=== PATIENT | male | born 1930 | race Caucasian/White ===

== ENCOUNTER 2017-05-03 16:54 | Inpatient (IN) | payer MEDICARE ==
[~2017-05-03] VITALS: Ht 182.9 cm; Wt 90.3 kg
--- NOTE | 2017-05-03 17:00 | NUR ---
PT [facility] FROM [facility] TO ER BED 03. PER REPORT, PT IS HYPOXIC SATTING AT LOW 80'S. ARRIVED ON 15L/MIN VIA NON REBREATHER SATTING AT 94%. GOWNED AND PLACED ON MONITOR. PT IS AAOX2, CONFUSED. TACHY NEWSPAPER CORRESPONDENT. AWAITING MD SEAY.
--- NOTE | 2017-05-03 17:05 | NUR ---
DR KEY AT BEDSIDE FOR EVAL.
--- NOTE | 2017-05-03 17:15 | NUR ---
IV LINE STARTED BLOOD DRAWN AND SENT TO LAB.
[2017-05-03] MEDS ORDERED: CALC-494 PO (17:16)
[2017-05-03] MEDS ORDERED: ASCO500T9 PO (17:16)
[2017-05-03] MEDS ORDERED: MULT-447 PO (17:16)
[2017-05-03] MEDS ORDERED: GUAI100S11 PO (17:16)
[2017-05-03] MEDS ORDERED: ACET-868 PO ×2 (17:16)
[2017-05-03] MEDS ORDERED: LOPE2CAP PO (17:16)
[2017-05-03] MEDS ORDERED: MELA3TAB PO (17:16)
[2017-05-03] MEDS ORDERED: AMIN30LI4 PO (17:16)
[2017-05-03] MEDS ORDERED: ZINC220C8 PO (17:16)
[2017-05-03] MEDS ORDERED: ASPI-1152 PO (17:16)
[2017-05-03] MEDS ORDERED: LEVO500T75 PO (17:16)
[2017-05-03] MEDS ORDERED: ALLO100T PO (17:16)
[2017-05-03] MEDS ORDERED: FLUO40CA8 PO (17:16)
[2017-05-03] MEDS ORDERED: AMLO5TAB2 PO (17:16)
[2017-05-03] MEDS ORDERED: NA P133E RC (17:16)
[2017-05-03] MEDS ORDERED: MAGN400O6 PO (17:16)
[2017-05-03] MEDS ORDERED: BISA10SU8 RC (17:16)
--- NOTE | 2017-05-03 17:22 | NUR ---
RADIOLOGY AT BEDSIDE FOR CHEST XRAY.
[2017-05-03] MEDS ORDERED: IV NS 0.9% 1,000 ML BAG IV ONE ×2 (17:30→19:00)
[2017-05-03 17:38] LABS: BASOPHILS # (AUTO) 0.1 /CMM (0.0-0.2); BASOPHILS % (AUTO) 0.5 % (0.0-2.0); EOSINOPHILS # (AUTO) 0.3 /CMM (0.0-0.7); EOSINOPHILS % (AUTO) 1.6 % (0.0-6.0); HEMATOCRIT 42 % (39-51); HEMOGLOBIN 14.4 g/dL (13.5-17.5); LYMPHOCYTES # (AUTO) 0.7 /CMM (0.8-4.8); LYMPHOCYTES % (AUTO) 4.1 % (20.0-44.0); MEAN CORPUSCULAR HEMOGLOBIN 32 PG (26.0-33.0); MEAN CORPUSCULAR HGB CONC 34 g/dl (31.0-36.0); MEAN CORPUSCULAR VOLUME 94 fL (80-96); MONOCYTES # (AUTO) 0.8 /CMM (0.1-1.30); MONOCYTES % (AUTO) 4.5 % (2.0-12.0); NEUTROPHILS # (AUTO) 14.9 /CMM (1.8-8.9); NEUTROPHILS % (AUTO) 89.3 % (43.0-81.0); PLATELET COUNT (AUTO) 228 /CMM (150-450); RDW COEFFICIENT OF VARIATION 14.9 (11.5-15.0); RED BLOOD CELL COUNT(AUTO) 4.44 MIL/uL (4.5-6.0); WHITE BLOOD COUNT (AUTO) 16.8 K/uL (4.3-11.0)
[2017-05-03 17:43] LABS: CALCIUM, SERUM 8.9 mg/dL (8.5-10.1); CARBON DIOXIDE 21 mmol/L (21-32); CHLORIDE 112 mmol/L (98-107); CREATININE 1.6 mg/dL (0.6-1.3); GLUCOSE 102 mg/dL (74-106); POTASSIUM 4.2 mmol/L (3.5-5.1); SODIUM SERUM 143 mmol/L (136-145); UREA NITROGEN, BLOOD 46 mg/dL (7-18)
[2017-05-03 17:49] LABS: ALANINE AMINOTRANSFERASE 52 U/L (12-78); ALBUMIN 1.6 g/dL (3.4-5.0); ALKALINE PHOSPHATASE 162 U/L (46-116); ASPARTATE AMINOTRANSFERASE 50 U/L (15-37); BILIRUBIN,DIRECT 0.2 mg/dL (0.0-0.2); BILIRUBIN,TOTAL 0.6 mg/dL (0.2-1.0); TOTAL PROTEIN, SERUM 7.8 g/dL (6.4-8.2)
[2017-05-03 17:51] LABS: TROPONIN I 0.291 ng/mL (0.00-0.056)
[2017-05-03 17:52] LABS: INR 1.33 (0.85-1.15)
[2017-05-03 18:08] LABS: APPEARANCE,URINE Cloudy (CLEAR); BILIRUBIN,URINE Negative (NEGATIVE); BLOOD, URINE Moderate Ery/uL (NEGATIVE); COLOR,URINE Yellow (YELLOW); KETONES,URINE Negative (NEGATIVE); LEUKOCYTE ESTERASE ,URINE Large (NEGATIVE); NITRITE, URINE Negative (NEGATIVE); PROTEIN,URINE 30 mg/dl (NEGATIVE); UGLUCOSE Negative (NEGATIVE)
[2017-05-03 18:20] LABS: BACTERIA,URINE Moderate /HPF (None Seen); WBC,URINE TOO NUMEROUS TO COUN /HPF (0-3)
[2017-05-03 18:21] LABS: SQUAMOUS EPITHELIAL CELL,UR Moderate /HPF (None Seen); URINE AMORPHOUS URATE Many /HPF (None Seen)
[2017-05-03] MEDS ORDERED: IV NS 0.9% 1,000 ML IV ONE (18:30)
[2017-05-03] MEDS ORDERED: VANCOMYCIN 1 GM in IV D5W 250 ML IV ONE ×2 (18:30→19:00)
--- NOTE | 2017-05-03 18:50 | NUR ---
PT REC'D ON NRB 15LPM, SOB NOTED. PT PLACED ON BIPAP PER DR LUIS SALAZAR. BIPAP PLUGGED INT RED OUTLET. ALARMS ARE SET AND AUDIBLE. SNEHA STEWARD BEDSIDE. WILL CONTINUE TO MONITOR Addendum: 05/03/17 at 2025 by HOWARD ASENCIO RT Amended: Links added.
[2017-05-03 18:59] LABS: NEUTROPHILS % (MANUAL) 84 (42-76)
[2017-05-03 19:00] LABS: BAND % (MANUAL) 5 % (0.0-5.0); LYMPHOCYTES % (MANUAL) 6 % (16-48); MONOCYTES % (MANUAL) 5 % (0-11.0)
[2017-05-03] MEDS ORDERED: ACETAMINOPHEN 650 MG/SUPP.RECT RC PRN (19:00)
[2017-05-03] MEDS ORDERED: ONDANSETRON HCL/PF 4 MG/2 ML VIAL IVP PRN (19:00)
[2017-05-03] MEDS ORDERED: ASCORBIC ACID 500 MG TABLET PO SCH (19:00)
--- NOTE | 2017-05-03 19:06 | NUR ---
REPORT RECEIVED FROM ELIAN FOR CRIST[facility].
[2017-05-03 19:38] LABS: ABG BASE EXCESS -9.9 mmol/L; ABG OXYGEN SATURATION 98.8 % (92.0-98.5); ABG PCO2 27.7 mmHg (35.0-45.0); ABG PH 7.334 (7.350-7.450); ABG PO2 220.7 mmHg (75.0-100.0); AaDO2 464.6 mmHg; COHb 0.2 % (0.5-1.5); MetHb 0.3 % (0.0-1.5); O2Hb 98.3 % (94.0-97.0); SITE, ABG Right Radial; VENT MODE, BG bipap 15/5 100% br14
--- NOTE | 2017-05-03 19:42 | NUR ---
BED 254
[2017-05-03] MEDS ORDERED: ENOXAPARIN SODIUM 60 MG/0.6 ML DISP.SYRIN SQ ONE (20:00)
--- NOTE | 2017-05-03 20:02 | NUR ---
REPORT GIVEN TO NEPTAIL RALPH. PT AWAITING TRANSFER TO FLOOR.
[2017-05-03] MEDS: IV NS 0.9% 1,000 ML IV PRN (20:46)
--- NOTE | 2017-05-03 20:46 | NUR ---
PT TRANSPORTED TO ICU 254 VIA STRETCHER ON ALLEY CLEANER WITH RN AND RT PER ACLS PROTOCOL. VSS.
[2017-05-03] MEDS ORDERED: ASCORBIC ACID 500 MG TABLET ONE (20:56)
[2017-05-03] MEDS ORDERED: ENOXAPARIN SODIUM 100 MG/ML DISP.SYRIN SQ ONE (20:56)
[2017-05-03] MEDS ORDERED: ASPIRIN 81 MG TAB.CHEW ONE ×2 (20:57→20:59)
[2017-05-03] MEDS: ALLOPURINOL 100 MG TABLET PO SCH (21:02)
[2017-05-03] MEDS: ASPIRIN EC 81 MG TABLET.DR PO SCH (21:03)
[2017-05-03 21:24] VITALS: BP 95/59
[2017-05-03] MEDS ORDERED: PHENYLEPHRINE 10 MG/ML VIAL ONE (21:44)
--- NOTE | 2017-05-03 21:45 | NUR ---
ACADEMIC INTERN. NEW ADMISSION. RECEIVED THE PT FROM ER VIA [place], PT AWAKE, ALERT, FOLLOW COMMANDS. PT ADMITTED IN THE ICU ROOM 254. FOE SEPSIS, RESPIRATORY FAILURE.SEPSIS.GRINDING WHEEL FACER SHOWING S TACH. IV RT HAD 20G, IVF NS 100ML/H, HOB ELEVATED, EUSEBIO HANDS BRUISE, SACRAL REDNESS AND DTI,LT THUMP WOUND, BIPAP ON 05/08, RATE 14, FIO2 50%. SAT 98%. WILL CONTINUE TO MONITOR VITALS.
[2017-05-03 22:00] VITALS: BP 80/52
[2017-05-03] MEDS: PHENYLEPHRINE 80 MG in IV D5W 250 ML IV PRN (22:05)
[2017-05-03] MEDS ORDERED: PIPERACILLIN /TAZOBACTAM 2.25 G VIAL IV ONE (22:46)
[2017-05-03 23:00] VITALS: BP 110/71
[2017-05-03 23:30] VITALS: BP 112/60
[2017-05-03 23:52] VITALS: BP 112/60
[2017-05-04] VITALS (46 sets, daily range): BP systolic 83–105; BP diastolic 44–69
[2017-05-04] MEDS ORDERED: PIPERACILLIN /TAZOBACTAM 4.5 G in IV D5W 100 ML IV SCH ×2
--- NOTE | 2017-05-04 03:33 | NUR ---
CHANGE ADVISOR, AM CARE, ORAL CARE, BED BATH GIVEN. LINEN CHANGED. REMAINING SAME BIPAP SETTINGS TOLERATED WELL. SAT 98%, NO ACUTE DISTRESS NOTED. CERTIFIED PATHOLOGY ASSISTANT SHOWING S TACH. IV RT UPPER ARM PICC LINE IVFF NS FC PATENT. TURN AND RE POSITION Q2H,HOB ELEVATED, WILL CONTINUE TO MONITOR VITALS.
[2017-05-04] MEDS ORDERED: VANCOMYCIN 1 GM VIAL ONE (04:27)
[2017-05-04] MEDS ORDERED: VANCOMYCIN 1 GM in IV D5W 250 ML IV ONE (05:00)
[2017-05-04 05:08] LABS: BASOPHILS % (AUTO) 0.1 % (0.0-2.0); EOSINOPHILS % (AUTO) 0.1 % (0.0-6.0); HEMATOCRIT 35 % (39-51); LYMPHOCYTES # (AUTO) 0.5 /CMM (0.8-4.8); LYMPHOCYTES % (AUTO) 3.6 % (20.0-44.0); MEAN CORPUSCULAR HEMOGLOBIN 33 PG (26.0-33.0); MEAN CORPUSCULAR HGB CONC 34 g/dl (31.0-36.0); MEAN CORPUSCULAR VOLUME 96 fL (80-96); MONOCYTES # (AUTO) 0.4 /CMM (0.1-1.30); MONOCYTES % (AUTO) 2.7 % (2.0-12.0); NEUTROPHILS # (AUTO) 13.2 /CMM (1.8-8.9); NEUTROPHILS % (AUTO) 93.5 % (43.0-81.0); PLATELET COUNT (AUTO) 255 /CMM (150-450); RDW COEFFICIENT OF VARIATION 15.4 (11.5-15.0); RED BLOOD CELL COUNT(AUTO) 3.67 MIL/uL (4.5-6.0); WHITE BLOOD COUNT (AUTO) 14.1 K/uL (4.3-11.0)
[2017-05-04 05:17] LABS: ALANINE AMINOTRANSFERASE 42 U/L (12-78); ALKALINE PHOSPHATASE 126 U/L (46-116); ASPARTATE AMINOTRANSFERASE 59 U/L (15-37); BILIRUBIN,TOTAL 0.6 mg/dL (0.2-1.0); CARBON DIOXIDE 20 mmol/L (21-32); CHLORIDE 117 mmol/L (98-107); CREATININE 1.5 mg/dL (0.6-1.3); GLUCOSE 97 mg/dL (74-106); POTASSIUM 3.8 mmol/L (3.5-5.1); SODIUM SERUM 148 mmol/L (136-145); TOTAL PROTEIN, SERUM 6.2 g/dL (6.4-8.2); UREA NITROGEN, BLOOD 47 mg/dL (7-18)
[2017-05-04 05:32] LABS: ALBUMIN 1.3 g/dL (3.4-5.0)
[2017-05-04 05:33] LABS: TROPONIN I 4.426 ng/mL (0.00-0.056)
[2017-05-04] MEDS ORDERED: PIPERACILLIN /TAZOBACTAM 2.25 G in IV D5W 50 ML IV SCH (06:00)
[2017-05-04 06:39] LABS: THYROID STIMULATING HORMONE 1.077 uIU/mL (0.358-3.74)
[2017-05-04] MEDS: PANTOPRAZOLE 40 MG VIAL IV SCH (07:37)
--- NOTE | 2017-05-04 08:00 | NUR ---
AWAKE, ANSWERS APPROPRIATELY. ON BIPAP. NEOSYNEPHRINE GTT TO KEEP SBP>90. TITRATE PRN. AFBERILE. DENIES PAIN.
[2017-05-04 08:54] LABS: MAGNESIUM 1.6 mg/dL (1.8-2.4)
[2017-05-04] MEDS: ALLOPURINOL 100 MG TABLET PO SCH (09:36)
[2017-05-04] MEDS: ASPIRIN EC 81 MG TABLET.DR PO SCH (09:36)
--- NOTE | 2017-05-04 10:00 | NUR ---
PATIENT SEEN BY DR. SMITH AND DR. LEONELA GOMEZ. PATIENT NPO EXCEPT MEDS.
[2017-05-04] MEDS: IV NS 0.9% 1,000 ML IV PRN ×2 (10:16→20:01)
[2017-05-04] MEDS: ENOXAPARIN SODIUM 30 MG/0.3 ML DISP.SYRIN SQ SCH (10:19)
[2017-05-04] MEDS: Magnesium 1GM/D5W 100ML PREMIX 100 ML IV SCH ×2 (10:19→11:33)
--- NOTE | 2017-05-04 10:26 | NUR ---
SPOKE TO RAMO SANTACRUZ AND TOLD HER THAT THE ULTRASOUND MACHINE IS CURRENTLY DOWN AND UNSURE WHAT TIME THE U/S EXAM WILL BE DONE @ 10:13 AM
[2017-05-04] MEDS: PHENYLEPHRINE 80 MG in IV D5W 250 ML IV PRN ×2 (10:40→20:45)
[2017-05-04] MEDS: PIPERACILLIN /TAZOBACTAM 2.25 G in IV NS 0.9% 50 ML IV SCH ×2 (12:31→17:36)
--- NOTE | 2017-05-04 13:00 | NUR ---
PATIENT PLACED ON 100% NRBM BY RT-KEPT HOB ELEVATED. ENCOURAGED COUGHING AND DEEP BREATHING-ABLE TO FOLLOW INSTRUCTIONS. MAINTAINED SPO2>94. WILL CHECK ABG IN 2 HRS.
[2017-05-04] MEDS ORDERED: FEE PK DOSING 1 MIN EA MC ONE (13:50)
[2017-05-04 15:10] LABS: ABG BASE EXCESS -7.1 mmol/L; ABG OXYGEN SATURATION 93.1 % (92.0-98.5); ABG PCO2 30.8 mmHg (35.0-45.0); ABG PH 7.362 (7.350-7.450); ABG PO2 69.5 mmHg (75.0-100.0); AaDO2 612.7 mmHg; MetHb 0.5 % (0.0-1.5); O2Hb 92.6 % (94.0-97.0); SITE, ABG Left Radial; VENT MODE, BG N/B MASK
--- NOTE | 2017-05-04 15:15 | NUR ---
ABG RESULTS SHOWN TO DR. RICARDO. TO KEEP PATIENT ON 100% NRBM PER MD.
--- NOTE | 2017-05-04 19:25 | NUR ---
REMAINS ON 100% NRBM -SPO2-92-94%. AWAKE AND FOLLOWS COMMANDS. NEOSYNEPHRINE GTT AT 125 MCG/MIN TO KEEP SBP>90. ADEQUATE URINE OUTPUT.
--- NOTE | 2017-05-04 19:30 | NUR ---
FOLDED TOWEL MACHINE OPERATOR INITIAL NOTE PT RECEIVED AWAKE IN BED. A/O X2-3 AND ABLE TO VERBALIZE NEEDS. ON NONREBREATHER MASK RECEIVING 100% OF O2 AND SATURATING 90-94% WITH NO DISTRESS NOTED. BREATHING REGULAR AND UNLABORED. HOB ELEVATED. IV SHAWN PICC CLEAN, DRY AND PATENT WITH FLUIDS INFUSING AT THIS TIME. NO C/O PAIN NOTED. ON JULIANNE DRIP WITH SBP MAINTAINED ABOVE 90. PT NPO EXCEPT MEDS. CALL LIGHT WITHIN REACH. WILL CONTINUE TO MONITOR.
--- NOTE | 2017-05-04 21:30 | NUR ---
ORACLE APPLICATION ARCHITECT NOTE WHILE SUCTIONING, PT DESATURATED TO LOW 80'S. NOTED WITH PRODUCTIVE COUGH. NO DISTRESS NOTED. SPOKE WITH RT TO BE PLACED ON BIPAP 15/5 FIO2 50% SATURATING 93%. WILL CONTINUE TO MONITOR.
[2017-05-04] MEDS: VANCOMYCIN 1 GM in IV D5W 250 ML IV SCH (21:35)
[2017-05-05] VITALS (83 sets, daily range): BP systolic 78–107; BP diastolic 43–71
[2017-05-05] MEDS: PIPERACILLIN /TAZOBACTAM 2.25 G in IV NS 0.9% 50 ML IV SCH ×5 (00:05→23:25)
[2017-05-05 05:07] LABS: EOSINOPHILS % (AUTO) 0.2 % (0.0-6.0); HEMATOCRIT 34 % (39-51); HEMOGLOBIN 11.6 g/dL (13.5-17.5); LYMPHOCYTES # (AUTO) 0.7 /CMM (0.8-4.8); LYMPHOCYTES % (AUTO) 5.3 % (20.0-44.0); MEAN CORPUSCULAR HEMOGLOBIN 32 PG (26.0-33.0); MEAN CORPUSCULAR HGB CONC 34 g/dl (31.0-36.0); MEAN CORPUSCULAR VOLUME 96 fL (80-96); MONOCYTES # (AUTO) 0.6 /CMM (0.1-1.30); NEUTROPHILS # (AUTO) 12.6 /CMM (1.8-8.9); NEUTROPHILS % (AUTO) 90.5 % (43.0-81.0); PLATELET COUNT (AUTO) 228 /CMM (150-450); RDW COEFFICIENT OF VARIATION 15.5 (11.5-15.0); RED BLOOD CELL COUNT(AUTO) 3.58 MIL/uL (4.5-6.0)
[2017-05-05 05:35] LABS: ALANINE AMINOTRANSFERASE 35 U/L (12-78); ALKALINE PHOSPHATASE 123 U/L (46-116); ASPARTATE AMINOTRANSFERASE 64 U/L (15-37); BILIRUBIN,TOTAL 0.6 mg/dL (0.2-1.0); CALCIUM, SERUM 7.8 mg/dL (8.5-10.1); CARBON DIOXIDE 19 mmol/L (21-32); CHLORIDE 117 mmol/L (98-107); CREATININE 1.3 mg/dL (0.6-1.3); GLUCOSE 242 mg/dL (74-106); MAGNESIUM 1.8 mg/dL (1.8-2.4); PHOSPHORUS 2.9 mg/dL (2.5-4.9); POTASSIUM 3.5 mmol/L (3.5-5.1); SODIUM SERUM 145 mmol/L (136-145); TOTAL PROTEIN, SERUM 5.9 g/dL (6.4-8.2); UREA NITROGEN, BLOOD 34 mg/dL (7-18)
[2017-05-05 05:49] LABS: TROPONIN I 5.263 ng/mL (0.00-0.056)
[2017-05-05 05:50] LABS: ALBUMIN 1.1 g/dL (3.4-5.0)
--- NOTE | 2017-05-05 07:15 | NUR ---
PHLEBOTOMY INSTRUCTOR INITIAL NOTE RECEIVED PATIENT ON JULIANNE GTT 125ML/HR BP 88/48. AWAITING PHARMACY TO BRING NEW BAG TO HANG. PT ON BIPAP 05/08 AC14 FIO2 70% SPO2 91%. ALL SAFETY MEASURES IN PLACE WILL CONTINUE TO MONITOR PATIENT CLOSELY. RT @ BEDSIDE.
[2017-05-05] MEDS: PHENYLEPHRINE 80 MG in IV D5W 250 ML IV PRN ×5 (07:22→22:34)
--- NOTE | 2017-05-05 07:27 | NUR ---
FOWL BLOOD TESTER CLOSING NOTE ALL NEEDS ATTENDED TO PROMPTLY. BLOOD PRESSURES DECREASED TO MID 80'S. INCREASED JULIANNE TO 150 MCG FROM 125MCG. SPOKE WITH PHARMACY TO BRING NEW BAG OF JULIANNE. CURRENTLY ON BIPAP AND INCREASED FIO2 FROM 50 TO 60% D/T DESATURATION IN THE MID 80'S. AT THIS TIME PT SATURATING 93% AND BREATHING WELL. WILL ENDORSE TO NEXT SHIFT FOR CONTINUITY OF CARE.
[2017-05-05] MEDS ORDERED: FEE PK DOSING 1 MIN EA MC ONE (07:31)
[2017-05-05] MEDS: PANTOPRAZOLE 40 MG VIAL IV SCH (08:08)
[2017-05-05] MEDS: ASPIRIN EC 81 MG TABLET.DR PO SCH (08:08)
[2017-05-05] MEDS: ALLOPURINOL 100 MG TABLET PO SCH (08:08)
[2017-05-05] MEDS: ENOXAPARIN SODIUM 30 MG/0.3 ML DISP.SYRIN SQ SCH (08:10)
[2017-05-05] MEDS: IV NS 0.9% 1,000 ML IV PRN ×2 (08:16→20:35)
--- NOTE | 2017-05-05 09:11 | NUR ---
WOUND CARE CONSULT: PT PRESENTS WITH DEEP TISSUE INJURY WHICH IS INTACT TO SACRUM EXTENDING TO BUTTOCKS, PRESENT ON ADMISSION. LEFT THUMB CRUSTED WOUND ALSO NOTED TO BE PRESENT ON ADMISSION. DEFER TO MD FOR THUMB. PT ALSO HAS REDNESS TO NASAL BRIDGE WHICH IS RESOLVING WITH MEPILEX PROTECTING SKIN WITH OXYGEN MASK. ALL SKIN PROTECTION AND WOUND RECOMMENDATIONS DISCUSSED WITH NURSING STAFF. PT ON FIRST STEP MATTRESS. WILL SEE PRN. MD IN AGREEMENT WITH PLAN OF CARE. CURRENT ZITA SCORE IS 13. Addendum: 05/05/17 at 0916 by NEVILLE ROSARIO WNDNU Amended: Links added.
[2017-05-05] MEDS ORDERED: Z GUARD REMEDY 2 OZ OINT TP SCH (09:30)
[2017-05-05] MEDS ORDERED: Z GUARD REMEDY 2 OZ OINT TP PRN (09:30)
--- NOTE | 2017-05-05 09:40 | NUR ---
OIL SPRAYING MACHINE OPERATOR NOTE DR. GOMEZ @ BEDSIDE PT BEING PUT ON BIPAP AGAIN SPO2 88%. PT B/P 88/44. ORDERED SECOND PRESSOR. AWAITING MEDICATION FROM PHARMACY. PT PLACED IN [place] POSITION TO SUPPORT PT B/P. B/P 92/51 SPO2 95% ON BIPAP /15 FI02 100%
[2017-05-05] MEDS: NOREPINEPHRINE 16 MG in IV D5W 500 ML IV PRN ×2 (10:13→22:57)
--- NOTE | 2017-05-05 15:15 | NUR ---
PROFESSOR OF BIOSTATISTICS NOTE PT ON VAPOTHERM HIGH FLOW OXYGEN 50L/MIN FIO2 80% BY JUANJO KAUR. PT SPO2 95% PT TOLERATING WELL.
[2017-05-05] MEDS: VANCOMYCIN 1 GM in IV D5W 250 ML IV SCH (16:13)
[2017-05-05] MEDS: methylPREDNISolone SOD SUCC 125 MG/2ML VIAL IV SCH ×2 (16:13→20:35)
--- NOTE | 2017-05-05 16:40 | NUR ---
TILE LAYER DRAINAGE NOTE PT SPO2 88% RT @ BEDSIDE RETURN PT TO BIPAP.
[2017-05-05] MEDS ORDERED: LACTOBACILLUS RHAMNOSUS GG 1 EACH CAP.SPRINK PO SCH (17:00)
--- NOTE | 2017-05-05 17:00 | NUR ---
BILINGUAL TEACHER NOTE PT A/O 2-3. NO C/O PAIN. PT ON BIPAP 15/5 FI02 70% SPO2 96%. PT ST 146. F/C INTACT. SHAWN PICC INTACT NS @ 100 ML/HR, JULIANNE @ 300MCG, LEVOPHED @ 36MCG. BP MAINTAINED SBP<90. REPORT GIVEN TO BIANCA. ALL ORDERS CARRIED OUT ALL MEDICATIONS GIVEN.ALL SAFETY MEASURES IN PLACE.
--- NOTE | 2017-05-05 17:21 | NUR ---
DIRECTOR BUSINESS INTEGRATION NOTE CALLED DR. COX REGARDING PATIENT HR 140-155. AWAITING CALL BACK.
--- NOTE | 2017-05-05 17:40 | NUR ---
ELEVATOR TECHNICIAN NOTE CALLED DR LOPEZ REGARDING PT HR 140/- Addendum: 05/05/17 at 1809 by MONICA MAZARIEGOS RN REPORTED HR 140-155 PT ON LEVOPHED 30 MCG AND JULIANNE 300 MCG B/P 91/47. NO NEW ORDERS.
--- NOTE | 2017-05-05 17:45 | NUR ---
COMBINATION MACHINE TENDER NOTE DR. COX CALLED BACK REPORTED HR AND PRESSORS ASKED TO CALL DR. LOPEZ.
--- NOTE | 2017-05-05 18:47 | NUR ---
BRAZING MACHINE FEEDER NOTE DR. LOPEZ @ BEDSIDE ORDERED VASOPRESSIN, CHEM7 AND MAG LEVEL STAT. WILL CONTINUE TO MONITOR PATIENT CLOSELY.
[2017-05-05] MEDS ORDERED: VASOPRESSIN INJ 50 UNIT in IV D5W 497.5 ML IV PRN (19:00)
[2017-05-05] MEDS ORDERED: AMIODARONE 900 MG in IV D5W 482 ML IV PRN (20:00)
[2017-05-05] MEDS ORDERED: AMIODARONE 150 MG in IV D5W 100 ML IV ONE (20:00)
[2017-05-05 20:41] LABS: CALCIUM, SERUM 7.5 mg/dL (8.5-10.1); CARBON DIOXIDE 16 mmol/L (21-32); CHLORIDE 117 mmol/L (98-107); CREATININE 1.7 mg/dL (0.6-1.3); GLUCOSE 207 mg/dL (74-106); MAGNESIUM 1.7 mg/dL (1.8-2.4); POTASSIUM 3.9 mmol/L (3.5-5.1); SODIUM SERUM 149 mmol/L (136-145); UREA NITROGEN, BLOOD 36 mg/dL (7-18)
--- NOTE | 2017-05-05 21:00 | NUR ---
DR LOPEZ NOTIFIED ABOUT PT AFIB 140S, NEW ORDERS RECEIVED PT GIVEN AMIODARONE BOLUS AND DRIP STARTED, AND PT WILL BE GIVEN 2G MAG.
[2017-05-05] MEDS ORDERED: Magnesium 1GM/D5W 100ML PREMIX 200 ML IV ONE (22:21)
[2017-05-05] MEDS: Magnesium 1GM/D5W 100ML PREMIX 100 ML IV SCH ×2 (22:35→23:45)
[2017-05-06] VITALS (19 sets, daily range): BP systolic 68–99; BP diastolic 29–72
--- NOTE | 2017-05-06 02:15 | NUR ---
DR ROMO NOTIFIED ABOUT PT CONTINUED ELEVATED HR AND LOW BP, AND LOW URINE OUTPUT, NEW ORDERS RECEIVED, WILL CARRY OUT
[2017-05-06] MEDS ORDERED: LEVALBUTEROL HCL NEB 1.25 MG/0.5 ML VIAL.NEB NEB PRN (02:30)
[2017-05-06] MEDS ORDERED: FUROSEMIDE 40 MG/4 ML VIAL IV SCH (03:00)
[2017-05-06] MEDS: PHENYLEPHRINE 80 MG in IV D5W 250 ML IV PRN (03:06)
[2017-05-06] MEDS: methylPREDNISolone SOD SUCC 125 MG/2ML VIAL IV SCH (04:06)
--- NOTE | 2017-05-06 04:25 | NUR ---
Asked to evaluate patient .Patient unresponsive to noxious stimuli.No spontaneous respiration. Pulses not palpable.No heart beat heard on auscultation.Pupils fixed and dilated.Not compatible to life. Pronounced .
--- NOTE | 2017-05-06 04:25 | NUR ---
PT WENT INTO VTACH 120S, THEN STARTED TO BETY TO 60S, THEN HAD NO PULSE, WAS UNRESPONSIVE THEN WENT ASYSTOLE, PT WAS ON LEVO, JULIANNE AND VASO. PT WAS UNABLE TO BE CODED BECAUSE HIS CODE STATUS IS DNR/DNI, PT AT 424, DR ROMO NOTIFIED, ROCK CRUSHER OPERATOR PRINCESS NOTIFIED, [facility] NOTIFIED. POST MORTEM CARE DONE
[2017-05-06 12:13] LABS: *SPE A/G RATIO 0.5 (0.7-1.7); *SPE ALBUMIN 1.8 g/dL (2.9-4.4); *SPE ALPHA-1-GLOBULIN 0.4 g/dL (0.0-0.4); *SPE ALPHA-2-GLOBULIN 0.9 g/dL (0.4-1.0); *SPE BETA GLOBULIN 1.5 g/dL (0.7-1.3); *SPE GLOBULIN, TOTAL 3.9 g/dL (2.2-3.9); *SPE M-SPIKE 0.6 g/dL (Not Observed); *SPEGAMMA GLOBULIN 1.1 g/dL (0.4-1.8)
== END 2017-05-06 04:25 | disposition expired | DRG 871 ==
LOC: ER 17:01 → ICU 19:47
PROVIDERS: ADMIT Internal Medicine; ATTEND Internal Medicine
PROC: 5A09457 Assistance with Respiratory Ventilation, 24-96 Consecutive Hours, Continuous Positive Airway Pressure (ICD-10-PCS; principal; 2017-05-04)
PROC: 02HV33Z Insertion of Infusion Device into Superior Vena Cava, Percutaneous Approach (ICD-10-PCS; 2017-05-04)
PROC: B548ZZA Ultrasonography of Superior Vena Cava, Guidance (ICD-10-PCS; 2017-05-04)
DX: A41.9 Sepsis, unspecified organism (principal); J96.01 Acute respiratory failure with hypoxia; N17.0 Acute kidney failure with tubular necrosis; I21.4 Non-ST elevation (NSTEMI) myocardial infarction; R65.21 Severe sepsis with septic shock; I95.9 Hypotension, unspecified; G93.1 Anoxic brain damage, not elsewhere classified; J18.9 Pneumonia, unspecified organism; G93.40 Encephalopathy, unspecified; E87.2 Acidosis; I21.A1 Myocardial infarction type 2; E87.0 Hyperosmolality and hypernatremia; N39.0 Urinary tract infection, site not specified; I48.92 Unspecified atrial flutter; E78.5 Hyperlipidemia, unspecified; I48.91 Unspecified atrial fibrillation; Z66 Do not resuscitate; F32.9 Major depressive disorder, single episode, unspecified; L89.90 Pressure ulcer of unspecified site, unspecified stage; Z79.82 Long term (current) use of aspirin; Z79.899 Other long term (current) drug therapy; F03.90 Unspecified dementia, unspecified severity, without behavioral disturbance, psychotic disturbance, mood disturbance, and anxiety; D64.9 Anemia, unspecified; I12.9 Hypertensive chronic kidney disease with stage 1 through stage 4 chronic kidney disease, or unspecified chronic kidney disease; N18.9 Chronic kidney disease, unspecified
CPT/HCPCS: 36415; 36569; 36600; 71045-TC; 76770-TC; 80048-TC; 80053-TC; 80061-TC; 80076-TC; 80202-TC; 81000-TC; 82728-TC; 82803-TC; 83540-TC; 83605-TC; 83735-TC; 84100-TC; 84155; 84165; 84439-TC; 84443-TC; 84484-TC; 85025-TC; 85730-TC; 87040-TC; 87081-TC; 87086-TC; 87400; 93307-TC; 94799-TC; 99082-TC; A4216; A4606; C1751; C9113; J0282; J1650; J2370; J2543; J2930; J3370; J3475; J3490; J7030; J7040; J7060; Z7610